=== PATIENT | male | born 1965 | race Caucasian/White ===

== ENCOUNTER → 2016-04-18 | Outpatient (REF) | payer BC ==
[2016-04-18 12:56] LABS: INR 1.03
== END ==
LOC: M LAB REF 12:19
PROVIDERS: ATTEND Nurse Practitioner Adult Health
DX: I25.10 Atherosclerotic heart disease of native coronary artery without angina pectoris (principal); Z79.01 Long term (current) use of anticoagulants

== ENCOUNTER → 2016-04-28 | Outpatient (REF) | payer BC | LOC: M LAB REF 16:27 | PROVIDERS: ATTEND Internal Medicine | DX: E78.2 Mixed hyperlipidemia (principal) ==

== ENCOUNTER → 2016-05-06 | Outpatient (CLI) | payer BC ==
--- NOTE | 2016-05-06 14:21 | REP ---
Clinical: Acute pain. Technique: AP, lateral, bilateral oblique and sunrise views of the right knee. Findings: Moderate degenerative changes include cortical irregularities to the femoral condyles, tibiofemoral and patellofemoral joint space narrowing, and subtle marginal spurring along the patella. Lateral view demonstrates anterior swelling and moderate to large suprapatellar effusion. Impression: Soft tissue swelling and effusion. Underlying mild to moderate degenerative changes. No acute fracture or dislocation. Signed by Houston Vega MD 05/06/2016 02:12 P
== END ==
LOC: M ADAMS 13:31
PROVIDERS: ATTEND Physician Assistant Medical
DX: M25.561 Pain in right knee (principal)

== ENCOUNTER → 2017-04-19 | Outpatient (REF) | payer BC ==
[2017-04-20 14:26] LABS: IRON (FE) 43 UG/DL (65-175); PERCENT SATURATION 9.6 % (19.7-50.0); TOTAL IRON BINDING CAPACITY 450 UG/DL (250-450)
== END ==
LOC: M LAB REF 04-20 13:34
DX: D64.9 Anemia, unspecified (principal)
CPT/HCPCS: 83550

== ENCOUNTER → 2018-04-09 | Outpatient (REF) | payer BC ==
[~2018-04-09] MED LIST: ACET500C4 PO; ATOR80TA59 PO; FENO48TA2 PO; LISI10TA4 PO; METF500T13 PO; XARE20TA PO
[2018-04-09 12:41] LABS: INR 1.19; PROTHROMBIN TIME 15.3 SECONDS (12.1-14.4)
== END ==
LOC: M LAB REF 12:21
PROVIDERS: ATTEND Internal Medicine
DX: R94.39 Abnormal result of other cardiovascular function study (principal); I25.10 Atherosclerotic heart disease of native coronary artery without angina pectoris

== ENCOUNTER → 2018-04-16 | Outpatient (REF) | payer BC ==
[2018-04-16 12:38] LABS: INR 1.39; PROTHROMBIN TIME 17.2 SECONDS (12.1-14.4)
== END ==
LOC: M LAB REF 11:58
PROVIDERS: ATTEND Internal Medicine
DX: G08 Intracranial and intraspinal phlebitis and thrombophlebitis (principal)

== ENCOUNTER 2018-05-02 12:07 | Outpatient (RCR) | payer BC ==
--- NOTE | 2018-05-02 15:44 | CARECAPL ---
Assessment Account #s: Initial Assessment General Diagnoses: CABG Date of event: Apr 03, 2018 Physician: Jr Isabel Collins Allergies: Coded Allergies: No Known Allergies (Verified , 06/15/17) Date Entered Program: May 02, 2018 Risk strat for cardiac event: Low Exercise Date: May 02, 2018 Assessment: Initial Assessment Exercise Prescription Plan TO EDUCATE AND BUILD ENDURANCE THROUGH MONITORED EXERCISE Modalities initiated: Treadmill (METS=2.53/RPE=2), Nustep (METS=2.5/RPE=2), Arm Aerometer (METS=2.2/RPE=2) Frequency: 3 Duration (Minutes) 30-660 minutes total exercise a day. [10-15 work intervals in minutes. 5 MIN PRN rest intervals in minutes. Functional Capacity Goal Sustained Metabolic Equivalent of a task (MET) goal of 4.5-5.25 for 15-20 minutes. Intensity: 3-Moderate Progression (METS) Increase by: 0.5 METS every: 3-5 sessions Angina with ex: No Target Heart Rate +35-40 BASED ON BETA DORIS THERAPY Resistance Training: Yes (WILL ADD) Weight (pounds): 2 Reps: 12-15 Hypertension: Yes Hypertension controlled with: Medication Resting 137/76 Peak Exercise BP 142/80 Medications Scheduled Acetazolamide (Acetazolamide ER), 500 MG PO BID, (Reported) Atorvastatin Calcium (Atorvastatin Calcium), 80 MG PO DAILY, (Reported) Fenofibrate (Fenofibrate), 48 MG PO DAILY, (Reported) Lisinopril (Lisinopril), 10 MG PO DAILY, (Reported) Metformin Hydrochloride (Metformin HCl), 1,000 MG PO QPM, (Reported) Rivaroxaban (Xarelto), 20 MG PO DAILY, (Reported) Current BP 118/68 Med Change: No Intervention Resistance Training: Yes Education: Self pulse, Ex safety, S/S to report, Low NA diet, BP medication, RPE Scale, Equipment orientation, warm up/cool down, Understand BP, Physical Active Target Goals Individual exercise Rx (1) BP 140/90 or 130/80 if DM or CKD (1) Aerobic active 30+min 5 days per week (1) Nutrition Date: May 02, 2018 Assessment: Initial Assessment Lipid- med/supplement ATORVASTATIN Med Change: No Diabetes Diabetes: Yes Fasting Blood Sugar: 110 Weight Management Weight (lbs): 223.4 Height (inches): 70.5 Waist Circumference (Inches): 42 BMI: 31.6 Weight goal: 200 Special Diet: low salt, low-fat Vitamin/Supplements: Multivitamin Alcohol: weekly Alcohol Type: beer, liquor Alcohol Amount: 2 Diet Access Tool: Rate your plate Score: 57 Current Weight (pounds): 223.4 Weight Goal 200 Intervention Learning Support Teacher Consult: No Nurse/patient discussion: Yes Dietary Goals TO MAKE BETTER HEART HEALTHY CHOICES Diet Class: Yes Referral to Diabetes education: No Referral to lipid clinic: No Referral to weight mangement p: No Education S&S hypo/hyper glycemia, Relate Diabetes in CAD, Eating Healthy Target goal LDL-C<100 if triglycerides are >200 Non-HDL-C should be <130 (1) LDL-C<70 for high risk patients (4) HbA1c<7% (1) BMI<25 Waist cir<40in M/<35in F (1) Education Date: May 02, 2018 Assessment: Initial Assessment Learning Barriers: ready Knowledge Test Score: 10 Family Support: Yes Tobacco use: No Quit: never smoked Tobacco Use Smokeless tobacco: No Intervention Referral to smoking cessation: No Individual education and couns: No Tobacco Adjunct: No Education class schedule given: No Attended education classes: No Education: tobacco triggers, CAD, Risk factors, med compliance, cardiac A&P, Angina S/S, Sexuality Target Goals Complete cessation of tobacco use (1). Psychosocial Date: May 02, 2018 Assessment: Initial Assessment Psych Test (Initial/Discharge) Tool Used: CESD Score: 0 Intervention Physician Consult: No Physician Referral: No Med Change: No Stress Management Class: No Uses Stress Management Skills: Yes Education Education: Coping Techniques, S/S depression, Relaxation Techniques Target Goal Assess presence or absence of depression using a valid screening tool (1). Maximize coping skills (2). Positive support system (2). Patient/Program Goal Preventative Medication: Yes Aspirin, Yes Beta blockade, Yes Statin/OTR lipid Lowering Fall Risk Assess: Yes (NOT A FALL RISK) Provider Assessment Session Number: 1 Provider Assessment: Proceed with rehab Will Crouch RN May 02, 2018 15:44
[2018-05-02] MEDS ORDERED: LOPR1TAB6 PO (15:53)
[2018-05-02] MEDS ORDERED: PROAAER10 INH (15:53)
[2018-05-02] MEDS ORDERED: BREO1INH INH (15:53)
[2018-05-02] MEDS ORDERED: ACET50CA PO (15:53)
[2018-05-02] MEDS ORDERED: MULTCAP PO (15:53)
[2018-05-02] MEDS ORDERED: FERR325T3 PO (15:53)
[2018-05-02] MEDS ORDERED: CIAL20TA PO (15:53)
[2018-05-02] MEDS ORDERED: FOLI1TAB11 PO (15:53)
[2018-05-02] MEDS ORDERED: ASPI81TA85 PO (15:53)
== END 2018-05-06 ==
LOC: M CR 12:07
PROVIDERS: ATTEND Internal Medicine
DX: Z51.89 Encounter for other specified aftercare (principal); Z95.1 Presence of aortocoronary bypass graft

== ENCOUNTER 2018-06-01 10:49 | Outpatient (RCR) | payer BC ==
--- NOTE | 2018-05-28 10:47 | CARECAPL ---
Assessment Account #s: Re-Assessment I General Diagnoses: CABG Date of event: Apr 03, 2018 Physician: Jr Isabel Collins Allergies: Coded Allergies: No Known Allergies (Verified , 06/15/17) Date Entered Program: May 02, 2018 Risk strat for cardiac event: Low Exercise Date: May 28, 2018 Assessment: Re-Assessment I Exercise Prescription Plan to educate about cardiac disease and to build endurance and strength through a monitored exercise program Modalities initiated: Treadmill (2.0/1.0 mts 2.53 rpe 2), Nustep (L2 mts 2.3 rpe 2), Arm Aerometer (1.5 mts 2.2 rpe 2), Dumbells (will add), Recumbent Bike (r 1 mts 3.1 rpe 3) Duration (Minutes) 30-60 minutes total exercise a day. 8-10 work intervals in minutes. as needed rest intervals in minutes. Functional Capacity Goal Sustained Metabolic Equivalent of a task (MET) goal of 4.5-5.25 for 15-20 minutes. Progression (METS) Increase by: .5 METS every: 2-3 sessions Angina with ex: No Target Heart Rate r+35-40 Resistance Training: Yes Meds see below Medications Scheduled Acetazolamide (Acetazolamide), 500 MG PO BID, (Reported) Acetazolamide (Acetazolamide), 500 MG PO BID, (Reported) Aspirin (Aspir 81), 81 MG PO DAILY, (Reported) Atorvastatin Calcium (Atorvastatin Calcium), 80 MG PO DAILY, (Reported) Fenofibrate Nanocrystallized (Fenofibrate), 48 MG PO DAILY, (Reported) Ferrous Sulfate (Ferrous Sulfate), 325 MG PO DAILY, (Reported) Fluticasone/Vilanterol (Breo Ellipta 100-25 Mcg INH), 1 PUFF INH DAILY, (Reported) Folic Acid (Folic Acid), 1 TAB PO DAILY, (Reported) Lisinopril (Lisinopril), 10 MG PO DAILY, (Reported) Metformin HCl (Metformin HCl), 1,000 MG PO QPM, (Reported) Metoprolol Tartrate (Lopressor), 25 MG PO BID, (Reported) Multivitamin (Multivitamins), 1 CAP PO DAILY, (Reported) Rivaroxaban (Xarelto), 20 MG PO DAILY, (Reported) Scheduled PRN Albuterol Sulfate (Proair Hfa), 2 PUFF INH PRN PRN for SHORTNESS OF BREATH, (Reported) Tadalafil (Cialis), 20 MG PO PRN PRN for ERECTILE DYSFUNCTION, (Reported) Current BP 106/70 Med Change: No Education Goals Met: No Target Goals Individual exercise Rx (1) BP 140/90 or 130/80 if DM or CKD (1) Aerobic active 30+min 5 days per week (1) Nutrition Date: May 28, 2018 Assessment: Re-Assessment I Lipid- med/supplement Atorvastatin Calcium Med Change: No Diabetes Diabetes: Yes (not checked at home. Type II) Current Weight (pounds): 222 Intervention Solar Panel Installation Supervisor Consult: Yes (will see associate professor of pathology) Referral to Diabetes education: Yes Referral to lipid clinic: Yes Referral to weight mangement p: Yes Education S&S hypo/hyper glycemia, Relate Diabetes in CAD, Eating Healthy Education Goals Met: No Target goal LDL-C<100 if triglycerides are >200 Non-HDL-C should be <130 (1) LDL-C<70 for high risk patients (4) HbA1c<7% (1) BMI<25 Waist cir<40in M/<35in F (1) Education Date: May 28, 2018 Assessment: Re-Assessment I Tobacco Use Smokeless tobacco: No Intervention Referral to smoking cessation: No Individual education and couns: No Tobacco Adjunct: No Education class schedule given: Yes Attended education classes: Yes Education: CAD, Risk factors Education Goals Met: No Target Goals Complete cessation of tobacco use (1). Psychosocial Date: May 28, 2018 Assessment: Re-Assessment I Intervention Physician Consult: No Physician Referral: No Med Change: No Stress Management Class: No Uses Stress Management Skills: No Education Education: Coping Techniques Education Goals Met: No Target Goal Assess presence or absence of depression using a valid screening tool (1). Maximize coping skills (2). Positive support system (2). Patient/Program Goal Preventative Medication: Yes Aspirin, Yes Beta blockade, Yes Statin/OTR lipid Lowering Fall Risk Assess: No Provider Assessment Session Number: 2 Provider Assessment: No changes (pt has been on vacation and out of town last 2 weeks) Radha Garcia RN May 28, 2018 10:47
[~2018-06-01 10:49] MED LIST changes: +ACET50CA PO; +ASPI81TA85 PO; +BREO1INH INH; +CIAL20TA PO; +FERR325T3 PO; +FOLI1TAB11 PO; +LOPR1TAB6 PO; +MULTCAP PO; +PROAAER10 INH
== END 2018-06-05 ==
LOC: M CR 10:49
PROVIDERS: ATTEND Internal Medicine
DX: Z95.1 Presence of aortocoronary bypass graft (principal)

== ENCOUNTER 2018-06-28 09:50 | Outpatient (RCR) | payer BC ==
--- NOTE | 2018-06-18 12:50 | CARECAPL ---
Assessment Account #s: Re-Assessment II General Diagnoses: CABG Date of event: Apr 03, 2018 Physician: Jr Isabel Collins Allergies: Coded Allergies: No Known Allergies (Verified , 06/15/17) Date Entered Program: May 02, 2018 Risk strat for cardiac event: Low Exercise Date: June 18, 2018 Assessment: Re-Assessment II Exercise Prescription Plan TO EDUCATE AND BUILD ENDURANCE THROUGH MONITORED EXERCISE Modalities initiated: Treadmill (METS=3.71/RPE=3), Nustep (METS=2.23/RPE=2), Arm Aerometer (METS=2.40/RPE=3), Recumbent Bike (METS=2.90/RPE=3) Duration (Minutes) 30-60 minutes total exercise a day. 10-15 MIN work intervals in minutes. 5 MIN PRN rest intervals in minutes. Functional Capacity Goal Sustained Metabolic Equivalent of a task (MET) goal of 4.5-5.25 for 15-20 minutes. Intensity: 3-Moderate Progression (METS) Increase by: 0.5 METS every: 3-5 sessions Angina with ex: No Target Heart Rate RATE + 35-40 Resistance Training: Yes Weight (pounds): 2 (WILL ADD) Reps: 12-15 Hypertension: Yes Hypertension controlled with: Medication Resting 132/90 Peak Exercise BP 140/90 Medications Scheduled Acetazolamide (Acetazolamide), 500 MG PO BID, (Reported) Acetazolamide (Acetazolamide), 500 MG PO BID, (Reported) Aspirin (Aspir 81), 81 MG PO DAILY, (Reported) Atorvastatin Calcium (Atorvastatin Calcium), 80 MG PO DAILY, (Reported) Fenofibrate Nanocrystallized (Fenofibrate), 48 MG PO DAILY, (Reported) Ferrous Sulfate (Ferrous Sulfate), 325 MG PO DAILY, (Reported) Fluticasone/Vilanterol (Breo Ellipta 100-25 Mcg INH), 1 PUFF INH DAILY, (Reported) Folic Acid (Folic Acid), 1 TAB PO DAILY, (Reported) Lisinopril (Lisinopril), 10 MG PO DAILY, (Reported) Metformin HCl (Metformin HCl), 1,000 MG PO QPM, (Reported) Metoprolol Tartrate (Lopressor), 25 MG PO BID, (Reported) Multivitamin (Multivitamins), 1 CAP PO DAILY, (Reported) Rivaroxaban (Xarelto), 20 MG PO DAILY, (Reported) Scheduled PRN Albuterol Sulfate (Proair Hfa), 2 PUFF INH PRN PRN for SHORTNESS OF BREATH, (Reported) Tadalafil (Cialis), 20 MG PO PRN PRN for ERECTILE DYSFUNCTION, (Reported) Current BP 138/80 Med Change: No Intervention Resistance Training: Yes Education: Self pulse, Ex safety, S/S to report, Low NA diet, BP medication, RPE Scale, Equipment orientation, warm up/cool down, Understand BP, Physical Active Target Goals Individual exercise Rx (1) BP 140/90 or 130/80 if DM or CKD (1) Aerobic active 30+min 5 days per week (1) Nutrition Date: June 18, 2018 Assessment: Re-Assessment II Lipid- med/supplement ATORVASTATIN Med Change: No Diabetes Diabetes: Yes Diabetes medication METFORMIN Monitor Blood Sugar at home: Yes Medication Change: No Weight Management Weight (lbs): 225 Special Diet: low salt, low-fat Current Weight (pounds): 225 Intervention Nurse/patient discussion: Yes Dietary Goals MAKE HEART HEALTHY CHOICES Diet Class: Yes Referral to Diabetes education: No Referral to lipid clinic: No Referral to weight mangement p: No Education S&S hypo/hyper glycemia, Relate Diabetes in CAD, Eating Healthy Target goal LDL-C<100 if triglycerides are >200 Non-HDL-C should be <130 (1) LDL-C<70 for high risk patients (4) HbA1c<7% (1) BMI<25 Waist cir<40in M/<35in F (1) Education Date: June 18, 2018 Assessment: Re-Assessment II Learning Barriers: ready Family Support: Yes Tobacco use: No Tobacco Use Smokeless tobacco: No Intervention Referral to smoking cessation: No Individual education and couns: No Tobacco Adjunct: No Education class schedule given: No Attended education classes: No Education: tobacco triggers, CAD, Risk factors, med compliance, cardiac A&P, Angina S/S, Sexuality Target Goals Complete cessation of tobacco use (1). Psychosocial Date: June 18, 2018 Assessment: Re-Assessment II Med Change: No Stress Management Class: No Uses Stress Management Skills: Yes Education Education: Coping Techniques, S/S depression, Relaxation Techniques Target Goal Assess presence or absence of depression using a valid screening tool (1). Maximize coping skills (2). Positive support system (2). Patient/Program Goal Preventative Medication: Yes Aspirin, Yes Beta blockade, Yes Statin/OTR lipid Lowering Provider Assessment Provider Assessment: Proceed with rehab Will Crouch RN June 18, 2018 12:50
== END 2018-07-06 ==
LOC: M CR 09:50
PROVIDERS: ATTEND Internal Medicine
DX: Z95.1 Presence of aortocoronary bypass graft (principal)

== ENCOUNTER → 2022-09-28 | Outpatient (REF) | payer BC ==
[~2022-09-28] MED LIST changes: -ASPI81TA85 PO; +ASPI81TA86 PO; -FENO48TA2 PO; +FENO48TA8 PO; +LISI10TA22 PO; -LISI10TA4 PO
== END ==
LOC: M LAB REF 16:28
PROVIDERS: ATTEND Internal Medicine
DX: R79.83 Abnormal findings of blood amino-acid level (principal)

== ENCOUNTER → 2023-03-29 | Outpatient (REF) | payer BC ==
[~2023-03-29] MED LIST changes: +ASPI81TA26 PO; +PROA1AER2 INH; +THERTAB52 PO
== END ==
LOC: M LAB REF 16:28
PROVIDERS: ATTEND Internal Medicine
DX: R79.83 Abnormal findings of blood amino-acid level (principal)

== ENCOUNTER 2023-04-14 08:42 | Day surgery (SDC) | payer BC ==
[~2023-04-14] VITALS: Ht 182.9 cm; Wt 101.6 kg
[2023-04-14] MEDS: NS 1,000 ML IV ONE (08:59)
[2023-04-14] MEDS ORDERED: propofoL 200 MG/20 ML VIAL As Ordered ONE (09:34)
[2023-04-14 10:44] VITALS: BP 125/74; TEMP 97.5; O2SAT 95
== END 2023-04-14 10:47 | disposition home or self-care (01) ==
LOC: M OPP 08:42
PROVIDERS: ATTEND Internal Medicine Gastroenterology
DX: Z12.11 Encounter for screening for malignant neoplasm of colon (principal); Z86.010 Personal history of colon polyps; D12.6 Benign neoplasm of colon, unspecified; K64.4 Residual hemorrhoidal skin tags; K64.8 Other hemorrhoids; E11.9 Type 2 diabetes mellitus without complications; I25.119 Atherosclerotic heart disease of native coronary artery with unspecified angina pectoris; G47.30 Sleep apnea, unspecified; Z95.5 Presence of coronary angioplasty implant and graft; Z79.01 Long term (current) use of anticoagulants; Z79.02 Long term (current) use of antithrombotics/antiplatelets; Z79.51 Long term (current) use of inhaled steroids; Z79.82 Long term (current) use of aspirin; Z79.84 Long term (current) use of oral hypoglycemic drugs; Z79.899 Other long term (current) drug therapy

== ENCOUNTER → 2023-08-16 | Outpatient (CLI) | payer BC | LOC: M SLEEP HO 10:45 | PROVIDERS: ATTEND Internal Medicine Pulmonary Disease | DX: G47.33 Obstructive sleep apnea (adult) (pediatric) (principal) ==

== ENCOUNTER → 2023-11-01 | Outpatient (REF) | payer BC ==
[2023-11-01 17:57] LABS: URIC ACID 6.6 MG/DL (3.7-9.2)
[2023-11-01 18:00] LABS: PHOSPHORUS LEVEL 3.7 MG/DL (2.5-4.9)
== END ==
LOC: M LAB REF 16:16
PROVIDERS: ATTEND Internal Medicine
DX: N18.32 Chronic kidney disease, stage 3b (principal)

== ENCOUNTER → 2023-12-05 | Outpatient (CLI) | payer BC | LOC: M RAD 13:53 | PROVIDERS: ATTEND Internal Medicine | DX: N18.32 Chronic kidney disease, stage 3b (principal) ==

== ENCOUNTER → 2024-05-01 | Outpatient (REF) | payer BC ==
[2024-05-01 15:51] LABS: URIC ACID 7.7 MG/DL (3.7-9.2)
== END ==
LOC: M LAB REF 15:13
PROVIDERS: ATTEND Internal Medicine
DX: N18.32 Chronic kidney disease, stage 3b (principal)

== ENCOUNTER → 2024-11-04 | Outpatient (REF) | payer BC ==
[2024-11-04 18:58] LABS: PHOSPHORUS LEVEL 3.1 MG/DL (2.5-4.9); PTH INTACT 23.0 PG/ML (18.5-88.0)
== END ==
LOC: M LAB REF 17:26
PROVIDERS: ATTEND Internal Medicine
DX: N18.32 Chronic kidney disease, stage 3b (principal)